=== PATIENT | female | born 1985 | race Caucasian/White ===

== ENCOUNTER 2019-06-26 14:09 | Emergency (ER) | payer OTHER, SELFPAY ==
[2019-06-26 14:14] VITALS: BP 114/63; PULSE 85; RESP 20; TEMP 36.9; O2SAT 100
--- NOTE | 2019-06-26 14:39 | ED.URI ---
HPI - URI/Sore Throat General Chief Complaint: Upper Respiratory Infection Stated Complaint: SORE THROAT/CHEST HEAVINESS Time Seen by Provider: 06/26/19 14:29 Source: patient and RN notes reviewed Mode of arrival: ambulatory Limitations: no limitations History of Present Illness HPI Narrative: Patient presents today complaining of sore throat and rhinorrhea since last night, but significantly worsened since this morning. She also reports of chest wall pain with deep breaths. Denies fever cough. She currently rates her pain 4/10 and has taken no medication for symptoms prior to arrival. History of gastric sleeve and cannot take NSAIDs. MD elicited complaint: sore throat Related Data Allergies Allergy/AdvReac Type Severity Reaction Status Date / Time latex Allergy Other Verified 06/26/19 14:22 Review of Systems Review of Systems: Narrative: CONSTITUTIONAL: Denies body aches, fever, chills, or sweats. EYES: Denies visual changes, redness, or discharge. ENT: Denies congestion, or otalgia.+ Sore throat, rhinorrhea CARDIOVASCULAR: Denies chest pain, palpitations, or edema. RESPIRATORY: Denies cough or dyspnea.+ Chest wall pain GASTROINTESTINAL: Denies abdominal pain, nausea, vomiting, or diarrhea. GENITOURINARY: Denies dysuria or hematuria. SKIN: Denies rash, itching, or wounds. MUSCULOSKELETAL: Denies back pain, joint pain, or myalgia. NEUROLOGIC: Denies headache, numbness, tingling, or weakness. PSYCH: Denies depression or anxiety. [facility] Surgical History Surgical History (Updated 06/26/19 @ 14:41 by Mendy Mcneill, [facility], ) History of sleeve gastrectomy Comments At time of signature, I have reviewed and agree with nursing past medical, surgical, social and family history unless otherwise noted. Please see nursing chart for further information. There is no relevant family history pertinent to the presenting complaint Exam Narrative: Exam Narrative: GENERAL: Well-appearing, well-nourished, and in no acute distress. HEAD: Normocephalic, atraumatic. EYES: EOMI. No redness or drainage. Conjunctivae normal. ENT: Mucous membranes pink and moist. Nares clear. No rhinorrhea. TMs normal bilaterally. Throat mildly erythematous without edema or exudate. Uvula midline. NECK: Normal AROM. Supple. Bilateral anterior cervical chain lymphadenopathy. CHEST: No respiratory distress. Clear to auscultation. HEART: Regular rate and rhythm. No murmur appreciated. Normal peripheral pulses. EXTREMITIES: Normal range of motion. No edema. SKIN: Warm, dry, no rash. NEURO: No focal deficits. Alert and oriented x3. Gait steady. PSYCH: Normal affect. No signs of depression or anxiety. Course Vital Signs Vital signs: Vital Signs Temperature 98.4 F 06/26/19 14:14 Pulse Rate 85 06/26/19 14:14 Respiratory Rate 20 06/26/19 14:14 Blood Pressure 114/63 06/26/19 14:14 Pulse Oximetry 100 06/26/19 14:14 Temperature 98.4 F 06/26/19 14:14 Pulse Rate 85 06/26/19 14:14 Respiratory Rate 06/26/19 14:14 Blood Pressure 114/63 06/26/19 14:14 Pulse Oximetry 100 06/26/19 14:14 Reviewed MDM - URI/Sore Throat Differential Diagnosis Differential diagnosis: Likely upper respiratory infection, otitis media, viral infection, pharyngitis and other (Strep throat) Lab Data Attestation: I reviewed the patient's lab results. Labs: Strep Screen Positive Group A Strep *(Reference Range: Negative)* Critical Care Time Critical Care Time Critical Care Time: No Discharge Plan Discharge Clinical Impression: Strep throat Patient Disposition: Home, Self-Care Condition: Stable Instructions: Antibiotic Form, Strep Throat (DC) Additional Instructions: You are positive for strep throat today. Please take the Keflex as prescribed until gone. Take Tylenol at home for pain or fever. You will be contagious for 48 hours after starting the Keflex. Follow-up with your doctor in 3 to
== END 2019-06-26 14:49 | disposition home or self-care (01) ==
PROVIDERS: Emergency Provider Nurse Practitioner
DX: J02.0 Streptococcal pharyngitis (principal); Z98.84 Bariatric surgery status
CPT/HCPCS: 87880; 99213; G0463